=== PATIENT | female | born 1975 | race American Indian/Alaskan Native ===

== ENCOUNTER 2016-11-15 07:31 | Day surgery (SDC) | payer MEDICARE ==
[~2016-11-15 07:31] MED LIST: ceFAZolin 2 GM in NACL 0.9% 100 ML IV ONE
--- NOTE | 2016-11-15 09:48 | Anesthesia Consultation ---
Anesthesia Consult and Med Hx Date of service: 11/15/16 - Airway Anesthetic Teeth Evaluation: Good ROM Head & Neck: Adequate Mental/Hyoid Distance: Adequate Mallampati Class: Class II Intubation Access Assessment: Probably Good - Pulmonary Exam CTA: Yes - Cardiac Exam Cardiac Exam: RRR - Pulmonary Hx Smoking: No Hx Asthma: Yes SOB: No Hx Sleep Apnea: Yes - Cardiovascular System Hx Hypertension: No (Low BP) Hx Angina: Yes (H/O mitral valve sclerosis, recently on bystolic) - Central Nervous System Hx Seizures: Yes Hx Psychiatric Problems: Yes - Other Systems Hx Alcohol Use: Yes (SOCIALLY) Hx Substance Use: No Hx Cancer: No
--- NOTE | 2016-11-15 09:48 | Anesthesia Day of Surgery ---
Anesthesia Day of Surgery - Day of Surgery Patient Examined: Yes Patient H&P Reviewed: Yes Patient is NPO: Yes Beta Blockers: Yes
--- NOTE | 2016-11-15 09:48 | Post Anesthesia Evaluation ---
- Post Anesthesia Evaluation Patient Participated: Yes Airway Patent: Yes Stable Respiratory Function: Yes Temp > 96.8F: Yes Pain Manageable: Yes Adequeate Hydration: Yes Anesthesia Complications: No Block Receding Appropriately: Not Applicable
[2016-11-15 10:59] LABS: Hematocrit 39.5 % (30.3-42.9); Hemoglobin 13.3 gm/dl (10.1-14.3)
[2016-11-15] MEDS ORDERED: NACL 0.9% 1000 ML 1,000 ML ONE (10:59)
[2016-11-15] MEDS ORDERED: NACL 0.9% 1000 ML 1,000 ML IV SCH (11:00)
[2016-11-15] MEDS ORDERED: PEPCID PO NR (11:00)
[2016-11-15] MEDS ORDERED: VERSED IV NR (11:00)
[2016-11-15] MEDS ORDERED: DILAUDID ONE ×2 (11:40→14:07)
[2016-11-15] MEDS ORDERED: DECADRON ONE (11:40)
[2016-11-15] MEDS ORDERED: XYLOCAINE MPF 2% ONE (11:40)
[2016-11-15] MEDS ORDERED: DIPRIVAN 10 MG/ML IV ONE (11:40)
[2016-11-15] MEDS ORDERED: ZOFRAN ONE (11:40)
[2016-11-15] MEDS ORDERED: ANCEF/STERILE WATER 2 GM/20 ML 2 GM/20 ML SYRINGE IV SCH (12:00)
[2016-11-15] MEDS ORDERED: ANCEF/STERILE WATER 2 GM/20 ML IV ONE (12:40)
[2016-11-15] MEDS ORDERED: NACL 0.9% IR ONE (13:21)
[2016-11-15] MEDS: DILAUDID IV PRN ×4 (14:10→14:40)
--- NOTE | 2016-11-15 14:13 | Post Anesthesia Evaluation ---
- Post Anesthesia Evaluation Patient Participated: No (resting) Airway Patent: Yes Stable Respiratory Function: Yes Nausea/Vomiting: No Temp > 96.8F: Yes Pain Manageable: Yes Adequeate Hydration: Yes Anesthesia Complications: Yes Block Receding Appropriately: Not Applicable Patient on Ventilator: No
--- NOTE | 2016-11-15 14:15 | Operative Report ---
SERVICE: Plastic surgery. PREOPERATIVE DIAGNOSIS: Hypertrophic/keloid scar of bilateral breasts. POSTOPERATIVE DIAGNOSIS: Hypertrophic/keloid scar of bilateral breasts. PROCEDURE: Complex scar revision of left breast, 20 cm. SURGEON: Reese Richey MD LOAN SPECIALIST: Evin Martinez CSA DESCRIPTION OF PROCEDURE: The patient was brought to the operating room and placed on the table in supine position. Following administration of general anesthesia, the left breast was prepped with Betadine solution, draped in usual sterile manner. A #10 blade scalpel was used to circumferentially excise the thickened scars of the left breast and sent to pathology as specimen. Hemostasis controlled using electrocautery. Closure was performed in layers using interrupted and running subcuticular 2-0 Monocryl sutures followed by Mastisol, Steri-Strips and sterile dressing. The patient tolerated the procedure well and returned to recovery room in stable condition. He will be undergoing radiation therapy later today. JOB# [id number] FTW/NTS
[2016-11-15 15:32] VITALS: BP 130/70
== END 2016-11-15 15:50 | disposition home or self-care (01) ==
LOC: OR 07:31
PROVIDERS: ATTEND Plastic Surgery
DX: L91.0 Hypertrophic scar (principal); Z72.89 Other problems related to lifestyle
CPT/HCPCS: 13101; 13102; 36415; 85014; 85018; 88307; J0690; J1100; J1170; J2250; J2405; J2704; J7030; 88305